=== PATIENT | female | born 1950 | race Caucasian/White ===

== ENCOUNTER 2017-12-05 12:09 | Observation (INO) | payer OTHER ==
[2017-12-05] VITALS (8 sets, daily range): BP systolic 126–188; BP diastolic 59–88; PULSE 49–100; RESP 16–29; TEMP 98.4–98.6; O2SAT 95–97
[~2017-12-05] VITALS: Ht 171.4 cm; Wt 101.8 kg
[~2017-12-05 12:09] MED LIST: D31000CA3; PAXI20TA26 PO; PRAV20TA2 PO
[2017-12-05] MEDS ORDERED: CYAN1TAB24 (12:55)
[2017-12-05] MEDS ORDERED: LOSA25TA PO (12:55)
--- NOTE | 2017-12-05 13:02 | PD ---
HPI Chief Complaint: Cardiac Complaint Time Seen by Provider: 12:49 Travel History International Travel<30 days: No Contact w/Intl Traveler<30days: No Traveled to known affect area: No History of Present Illness HPI This 67-year-old female was sent here by her primary care doctor. She went for a routine visit to Dr. Trujillo's office. Her pulse there was found to be 40. An EKG was done and she was found to be in a pattern of bigeminy. It was recommended to her that she come here. She is not feeling weak or dizzy. She has no history of heart disease. She does have hypertension and is on losartan and also a statin. She has not been having chest pain. She has not been having dyspnea. 20 years ago she had stage IV breast cancer for which she received chemotherapy. There is been no vomiting or diarrhea. She is not on any water pills. She says that she feels as though she is in her usual state of health. She has a history of renal insufficiency and sees Dr. Rg every 6 months. She is currently on losartan [facility] Past Medical History Anxiety: Yes Cancer: Yes (LEFT BREAST) Cardiovascular Problems: Yes (htn on meds) High Cholesterol: Yes Chemotherapy: Yes (1995-last treatment) Diabetes: No Diminished Hearing: No Endocrine: No Gastrointestinal Disorders: No Genitourinary: No Hepatitis: No Hiatal Hernia: No Hypertension: Yes Immune Disorder: No Medical other: Yes (HIGH CHOLESTEROLEMIA; CHEMOTHERAPY- 1995) Musculoskeletal: Yes (HX LUMBAR DISC ISSUES) Neurologic: Yes (NUMBNESS TOES) Psychiatric: Yes (ANXIETY) Reproductive: No Respiratory: No Immunizations Current: Yes Thyroid Disease: No Tetanus Vaccination: Unknown PNEUMOCCOCAL Vaccine (Year): 2 ?: Not Menopausal: Yes : 3 Para: 2 Ectopic : Yes Tubal Ligation: Yes Past Surgical History Abdominal Surgery: Yes ( X 2; LAPAROSCOPY ECTOPIC/OVARY) AICD: No Body Medical Devices: BREA. BREASTS Cardiac Surgery: No Section: Yes Ear Surgery: No Endocrine Surgery: No Eye Surgery: No Genitourinary Surgery: No Gynecologic Surgery: Yes (C SECTION X 2, LAPAROSCOPY (ECTOPIC)) Joint Replacement: No Mastectomy: Yes (LEFT WITH BILAT RECONSTRUCTION-2011) Neurologic Surgery: Yes (LUMBAR DISC. REP.) Oral Surgery: Yes (CAPS) Pacemaker: No Thoracic Surgery: Yes (BREA MASTECTOMY REMOVAL WITH RECONSTRUCTION) Other Surgery: Yes Social History Alcohol Use: No Tobacco Use: No Substance Use: No Allergies-Medications (Allergen,Severity, Reaction): Coded Allergies: No Known Allergies (Unverified Adverse Reaction, Unknown, 12/05/17) Reported Meds & Prescriptions Reported Meds & Active Scripts Active Reported B12 (Cyanocobalamin) 1,000 Mcg Tab Losartan (Losartan Potassium) 25 Mg Tab Unknown Dose PO DAILY Pravastatin 20 Mg Tab 20 Mg PO DAILY Paxil (Paroxetine HCl) 20 Mg Tablet PO HS PRN Vitamin D-3 (Cholecalciferol) 1,000 Unit Cap Review of Systems General / Constitutional: No: Fever, Chills Eyes: No: Diploplia HENT: No: Headaches, Lightheadedness Cardiovascular: No: Chest Pain or Discomfort, Palpitations Respiratory: No: Cough, Shortness of Breath Genitourinary: No: Urgency, Frequency Musculoskeletal: No: Myalgias, Arthralgias Skin: No Itching, No Dryness Neurologic: No: Weakness Endocrine: No: Heat Intolerance, Cold Intolerance Hematologic/Lymphatic: No: Easy Bruising Physical Exam Narrative GENERAL: Well-developed female SKIN: Focused skin assessment warm/dry. HEAD: Atraumatic. Normocephalic. EYES: Pupils equal and round. No scleral icterus. No injection or drainage. ENT: No nasal bleeding or discharge. Mucous membranes pink and moist. NECK: Trachea midline. No JVD. CARDIOVASCULAR: Irregular rate and rhythm. No murmur appreciated. RESPIRATORY: No accessory muscle use. Clear to auscultation. Breath sounds equal bilaterally. GASTROINTESTINAL: Abdomen soft, non-tender, nondistended. Hepatic and splenic margins not palpable. MUSCULOSKELETAL: No obvious deformities. No clubbing. No cyanosis. No edema. NEUROLOGICAL: Awake and alert. No obvious cranial nerve deficits. Motor grossly within normal limits. Normal speech. PSYCHIATRIC: Appropriate mood and affect; insight and judgment normal. Data Data Last Documented VS Vital Signs Date Time Temp Pulse Resp B/P (MAP) Pulse Ox O2 Delivery O2 Flow Rate FiO2 12/05/17 13:58 77 16 160/75 (103) 96 Room Air 12/05/17 12:29 98.6 Orders Orders Electrocardiogram (12/05/17 12:59) Complete Blood Count With Diff (12/05/17 12:59) Basic Metabolic Panel (Bmp) (12/05/17 12:59) Troponin I (12/05/17 12:59) B-Type Natriuretic Peptide (12/05/17 12:59) Magnesium (Mg) (12/05/17 12:59) Thyroid Stimulating Hormone (12/05/17 12:59) Chest, Pa & Lat (12/05/17 12:59) Sodium Chlor 0.9% 250 Ml Inj (Ns 250 Ml (12/05/17 13:45) Labs Laboratory Tests Test 12/05/17 13:00 White Blood Count 9.4 TH/MM3 Red Blood Count 4.67 MIL/MM3 Hemoglobin 13.2 GM/DL Hematocrit 39.9 % Mean Corpuscular Volume 85.4 FL Mean Corpuscular Hemoglobin 28.4 PG Mean Corpuscular Hemoglobin Concent 33.2 % Red Cell Distribution Width 13.0 % Platelet Count 223 TH/MM3 Mean Platelet Volume 9.2 FL Neutrophils (%) (Auto) 72.6 % Lymphocytes (%) (Auto) 16.5 % Monocytes (%) (Auto) 7.3 % Eosinophils (%) (Auto) 2.6 % Basophils (%) (Auto) 1.0 % Neutrophils # (Auto) 6.8 TH/MM3 Lymphocytes # (Auto) 1.6 TH/MM3 Monocytes # (Auto) 0.7 TH/MM3 Eosinophils # (Auto) 0.2 TH/MM3 Basophils # (Auto) 0.1 TH/MM3 CBC Comment DIFF FINAL Differential Comment Blood Urea Nitrogen 37 MG/DL Creatinine 2.40 MG/DL Random Glucose 89 MG/DL Calcium Level 10.1 MG/DL Magnesium Level 2.4 MG/DL Sodium Level 142 MEQ/L Potassium Level 5.1 MEQ/L Chloride Level 110 MEQ/L Carbon Dioxide Level 22.9 MEQ/L Anion Gap 9 MEQ/L Estimat Glomerular Filtration Rate 20 ML/MIN Troponin I LESS THAN 0.02 NG/ML B-Type Natriuretic Peptide 124 PG/ML Thyroid Stimulating Hormone 3rd Gen 0.371 uIU/ML [facility] Medical Decision Making Medical Screen Exam Complete: Yes Emergency Medical Condition: Yes Medical Record Reviewed: Yes Differential Diagnosis Differential includes bigeminy, electrolyte imbalance Narrative Course Potassium is 5.1. Her creatinine is 2.4 which is slightly higher than it was when it was measured 2 years ago. Her hemoglobin is 13. Patient has remained in bigeminy's rate of 40. She is asymptomatic. Patient has remained in bigeminy with a palpable pulse of 40. Discussed the case with Dr. Rodriguez who recommends observing the patient on a alarm security or surveillance monitor to make sure more ominous arrhythmias are not present, and checking echo Diagnosis Primary Impression: Cardiac dysrhythmia Admitting Information Admitting Physician Requests: Observation José Boles MD December 05, 2017 13:02
[2017-12-05 13:16] LABS: AUTOMATED NEUTROPHIL # 6.8 TH/MM3 (1.8-7.7); BASOPHIL # 0.1 TH/MM3 (0-0.2); EOSINOPHIL # 0.2 TH/MM3 (0-0.4); EOSINOPHIL % 2.6 % (0.0-4.0); HEMATOCRIT 39.9 % (35.0-46.0); HEMOGLOBIN 13.2 GM/DL (11.6-15.3); LYMPH % 16.5 % (9.0-44.0); LYMPHOCYTE # 1.6 TH/MM3 (1.0-4.8); MEAN CELL VOLUME 85.4 FL (80.0-100.0); MEAN CORPUSCULAR HEMOGLOBIN 28.4 PG (27.0-34.0); MEAN CORPUSCULAR HGB CONC 33.2 % (32.0-36.0); MEAN PLATELET VOLUME 9.2 FL (7.0-11.0); MONO % 7.3 % (0.0-8.0); MONOCYTE # 0.7 TH/MM3 (0-0.9); NEUT % 72.6 % (16.0-70.0); PLATELET COUNT 223 TH/MM3 (150-450); RED BLOOD COUNT 4.67 MIL/MM3 (4.00-5.30); WHITE BLOOD COUNT 9.4 TH/MM3 (4.0-11.0)
[2017-12-05 13:22] LABS: CHLORIDE 110 MEQ/L (98-107); SODIUM (NA) 142 MEQ/L (136-145)
[2017-12-05 13:26] LABS: CALCIUM 10.1 MG/DL (8.5-10.1)
[2017-12-05 13:27] LABS: BICARBONATE 22.9 MEQ/L (21.0-32.0); BLOOD UREA NITROGEN 37 MG/DL (7-18); GLUCOSE,RANDOM 89 MG/DL (74-106); MAGNESIUM 2.4 MG/DL (1.5-2.5)
[2017-12-05 13:30] LABS: GLOMERULAR FILTRATION RATE 20 ML/MIN (>89)
--- NOTE | 2017-12-05 13:34 | RADRPT ---
EXAM DATE: 12/05/2017 1:31 PM EDT AGE/SEX: 67 years / Female INDICATIONS: Short of breath, Irregular heartbeat. CLINICAL DATA: This is the patient's initial encounter. Patient reports that signs and symptoms have been present for 1 day and indicates a pain score of 0/10. MEDICAL/SURGICAL HISTORY: Hypertension. Carcinoma, breast. . bilateral mastectomy with reconst ruction COMPARISON: No prior [facility] exams available for comparison. FINDINGS: PA and lateral views of the chest demonstrate the lungs to be symmetrically aerated without evidence of mass, infiltrate or effusion. The cardiomediastinal contours are unremarkable. Osseous structures are intact. CONCLUSION: No acute cardiopulmonary disease. Electronically signed by: Acosta Noonan MD 12/05/2017 1:32 PM EDT
[2017-12-05 13:36] LABS: TROPONIN I LESS THAN 0.02 NG/ML (0.02-0.05)
[2017-12-05] MEDS ORDERED: SODIUM CHLOR 0.9% 250 ML INJ 250 ML IV ONE (13:45)
--- NOTE | 2017-12-05 14:43 | HHI.HP ---
HPI Service [facility] Primary Care Physician Carl Trujillo MD Admission Diagnosis CARDIAC DYSRHYTHMIA Diagnoses: (1) Cardiac dysrhythmia Chief Complaint: I went to the doctor and was found to have a low pulse rate and cardiac arrhythmia, therefore was sent to the ED for further exam Travel History International Travel<30 Days: No Contact w/Intl Traveler <30 Da: No Traveled to Known Affected Are: No History of Present Illness 67-year-old female with past medical history of hypertension, who initially went to her PCP this morning and was found to have a pulse of 40, and bigeminy and EKGs that was ordered was referred to the emergency department for further treatment. Patient denies any chest pain, heart palpitation or dizziness however she endorses mild shortness of breath. She has a history of hypertension for which she is on losartan. On admissions, patient had a heart rate of 49 and labile blood pressure. However since being admitted, patient has had improvement of her heart rate. She currently denies any GI bleed. Review of Systems Except as stated in HPI: all other systems reviewed are Neg Past Family Social History Past Medical History Anxiety: Yes Cancer: Yes (LEFT BREAST) Cardiovascular Problems: Yes (htn on meds) High Cholesterol: Yes Chemotherapy: Yes (1995-last treatment) Diabetes: No Diminished Hearing: No Endocrine: No Gastrointestinal Disorders: No Genitourinary: No Hepatitis: No Hiatal Hernia: No Hypertension: Yes Immune Disorder: No Medical other: Yes (HIGH CHOLESTEROLEMIA; CHEMOTHERAPY- 1995) Musculoskeletal: Yes (HX LUMBAR DISC ISSUES) Neurologic: Yes (NUMBNESS TOES) Psychiatric: Yes (ANXIETY) Reproductive: No Respiratory: No PNEUMOCCOCAL Vaccine (Year): 2 ?: Not Past Surgical History Abdominal Surgery: Yes ( X 2; LAPAROSCOPY ECTOPIC/OVARY) Body Medical Devices: BREA. BREASTS Section: Yes Gynecologic Surgery: Yes (C SECTION X 2, LAPAROSCOPY (ECTOPIC)) Mastectomy: Yes (LEFT WITH BILAT RECONSTRUCTION-2011) Neurologic Surgery: Yes (LUMBAR DISC. REP.) Oral Surgery: Yes (CAPS) Thoracic Surgery: Yes (BREA MASTECTOMY REMOVAL WITH RECONSTRUCTION) Other Surgery: Yes Reported Medications B12 (Cyanocobalamin) 1,000 Mcg Tab Losartan (Losartan Potassium) 25 Mg Tab Unknown Dose PO DAILY Pravastatin 20 Mg Tab 20 Mg PO DAILY Paxil (Paroxetine HCl) 20 Mg Tablet PO HS PRN Vitamin D-3 (Cholecalciferol) 1,000 Unit Cap Allergies: Coded Allergies: No Known Allergies (Verified Adverse Reaction, Unknown, 12/05/17) Family History Family history positive for cancer, hypertension Social History Alcohol Use: No Tobacco Use: No Substance Use: No Physical Exam Vital Signs Vital Signs Date Time Temp Pulse Resp B/P (MAP) Pulse Ox O2 Delivery O2 Flow Rate FiO2 12/05/17 13:58 77 16 160/75 (103) 96 Room Air 12/05/17 12:53 83 16 188/82 (117) 97 Room Air 12/05/17 12:50 16 97 Room Air 12/05/17 12:29 98.6 49 16 163/78 (106) 97 Physical Exam GENERAL: This is a well-nourished, well-developed patient, in no apparent distress. SKIN: No rashes, ecchymoses or lesions. Cool and dry. HEAD: Atraumatic. Normocephalic. No temporal or scalp tenderness. EYES: Pupils equal round and reactive. Extraocular motions intact. No scleral icterus. No injection or drainage. ENT: Nose without bleeding, purulent drainage or septal hematoma. Throat without erythema, tonsillar hypertrophy or exudate. Uvula midline. Airway patent. NECK: Trachea midline. No JVD or lymphadenopathy. Supple, nontender, no meningeal signs. CARDIOVASCULAR: Regular rate and rhythm without murmurs, gallops, or rubs. RESPIRATORY: Clear to auscultation. Breath sounds equal bilaterally. No wheezes , rales, or rhonchi. GASTROINTESTINAL: Abdomen soft, non-tender, nondistended. No hepato-splenomegaly , or palpable masses. No guarding. MUSCULOSKELETAL: Extremities without clubbing, cyanosis, or edema. No joint tenderness, effusion, or edema noted. No calf tenderness. Negative Homans sign bilaterally. NEUROLOGICAL: Awake and alert. Cranial nerves II through XII intact. Motor and sensory grossly within normal limits. Five out of 5 muscle strength in all muscle groups. Normal speech. Laboratory Laboratory Tests Test 12/05/17 13:00 White Blood Count 9.4 Red Blood Count 4.67 Hemoglobin 13.2 Hematocrit 39.9 Mean Corpuscular Volume 85.4 Mean Corpuscular Hemoglobin 28.4 Mean Corpuscular Hemoglobin Concent 33.2 Red Cell Distribution Width 13.0 Platelet Count 223 Mean Platelet Volume 9.2 Neutrophils (%) (Auto) 72.6 Lymphocytes (%) (Auto) 16.5 Monocytes (%) (Auto) 7.3 Eosinophils (%) (Auto) 2.6 Basophils (%) (Auto) 1.0 Neutrophils # (Auto) 6.8 Lymphocytes # (Auto) 1.6 Monocytes # (Auto) 0.7 Eosinophils # (Auto) 0.2 Basophils # (Auto) 0.1 CBC Comment DIFF FINAL Differential Comment Blood Urea Nitrogen 37 Creatinine 2.40 Random Glucose 89 Calcium Level 10.1 Magnesium Level 2.4 Sodium Level 142 Potassium Level 5.1 Chloride Level 110 Carbon Dioxide Level 22.9 Anion Gap 9 Estimat Glomerular Filtration Rate 20 Troponin I LESS THAN 0.02 B-Type Natriuretic Peptide 124 Thyroid Stimulating Hormone 3rd Gen 0.371 Result Diagram: 12/05/17 1300 12/05/17 1300 Imaging Last Impressions Chest X-Ray 12/05/17 1259 Signed Impressions: CONCLUSION: No acute cardiopulmonary disease. Septic Shock Reassessment Septic shock perfusion: reassessment completed Caprini VTE Risk Assessment Caprini VTE Risk Assessment: Mod/High Risk (score >= 2) Caprini Risk Assessment Model Point Value = 1 Point Value = 2 Point Value = 3 Point Value = 5 Age 41-60 Minor surgery BMI > 25 kg/m2 Swollen legs Varicose veins or History of unexplained or recurrent spontaneous Oral contraceptives or hormone replacement Sepsis (< 1 month) Serious lung disease, including pneumonia (< 1 month) Abnormal pulmonary function Acute myocardial infarction Congestive heart failure (< 1 month) History of inflammatory bowel disease Medical patient at bed rest Age 61-74 Arthroscopic surgery Major open surgery (> 45 min) Laparoscopic surgery (> 45 min) Malignancy Confined to bed (> 72 hours) Immobilizing plaster cast Central venous access Age >= 75 History of VTE Family history of VTE Factor V Leiden Prothrombin [id number] Lupus anticoagulant Anticardiolipin antibodies Elevated serum homocysteine Heparin-induced thrombocytopenia Other congenital or acquired thrombophilia Stroke (< 1 month) Elective arthroplasty Hip, pelvis, or leg fracture Acute spinal cord injury (< 1 month) Prophylaxis Regimen Total Risk Factor Score Risk Level Prophylaxis Regimen 0-1 Low Early ambulation 2 Moderate Order ONE of the following: *Sequential Compression Device (SCD) *Heparin 5000 units SQ BID 3-4 Higher Order ONE of the following medications: *Heparin 5000 units SQ TID *Enoxaparin/Lovenox 40 mg SQ daily (WT < 150 kg, CrCl > 30 mL/min) *Enoxaparin/Lovenox 30 mg SQ daily (WT < 150 kg, CrCl > 10-29 mL/min) *Enoxaparin/Lovenox 30 mg SQ BID (WT < 150 kg, CrCl > 30 mL/min) AND/OR *Sequential Compression Device (SCD) 5 or more Highest Order ONE of the following medications: *Heparin 5000 units SQ TID (Preferred with Epidurals) *Enoxaparin/Lovenox 40 mg SQ daily (WT < 150 kg, CrCl > 30 mL/min) *Enoxaparin/Lovenox 30 mg SQ daily (WT < 150 kg, CrCl > 10-29 mL/min) *Enoxaparin/Lovenox 30 mg SQ BID (WT < 150 kg, CrCl > 30 mL/min) AND *Sequential Compression Device (SCD) Assessment and Plan Problem List: (1) Cardiac dysrhythmia ICD Code: I49.9 - Cardiac arrhythmia, unspecified Status: Acute Assessment and Plan 67-year-old female with Cardiac dysrhythmia Bigeminy The ED physician discussed the case with cardiology on-call who recommended 23-hour observations and 2D echo monitoring as well as correcting all electrolytes abnormalities. Initial cardiac enzyme negative Continue with telemetry monitoring Cardiology consultation as needed Asymptomatic bradycardia on presentation However this is resolved since admission 2D echo pending Acute kidney injury Hold on nephrotoxic drug Start gentle IV fluid hydration and monitor BUN and creatinine Hypertension Hydralazine as needed Hyperlipidemia Resume statin DVT prophylaxis: Bilateral SCDs Code Status Full code Discussed Condition With Patient, ED physician Kannan Ontiveros MD December 05, 2017 14:43
[2017-12-05] MEDS ORDERED: METOCLOPRAMIDE HCL 10 MG/2 ML VIAL IV PUSH PRN (14:45)
[2017-12-05] MEDS ORDERED: MAGNESIUM HYDROXIDE SUSP 30 ML CUP PO PRN (14:45)
[2017-12-05] MEDS ORDERED: SODIUM CHLORIDE 0.9% FLUSH 10 ML FLUSH IV FLUSH PRN (14:45)
[2017-12-05] MEDS ORDERED: ACETAMINOPHEN 325 MG TAB PO PRN ×2 (14:45)
[2017-12-05] MEDS ORDERED: NALOXONE HCL 0.4 MG/ML AMP IV PUSH PRN (14:45)
[2017-12-05] MEDS: SODIUM CHLOR 0.9% 1000 ML INJ 1,000 ML IV SCH (15:26)
[2017-12-05] MEDS ORDERED: SIMETHICONE 80 MG CHEWABLE TAB CHEW PRN (16:00)
[2017-12-05] MEDS: SODIUM CHLORIDE 0.9% FLUSH 10 ML FLUSH IV FLUSH SCH (21:00)
[2017-12-05] MEDS ORDERED: hydrALAZINE HCL 50 MG TAB PO SCH (21:00)
[2017-12-05] MEDS: hydrALAZINE HCL 25 MG TAB PO PRN (22:10)
[2017-12-06] VITALS: BP 152/72; PULSE 84; RESP 22; TEMP 98.6; O2SAT 96
[2017-12-06 04:00] VITALS: BP 161/79; PULSE 72; RESP 20; TEMP 97.5; O2SAT 96
[2017-12-06 04:52] LABS: AUTOMATED NEUTROPHIL # 5.2 TH/MM3 (1.8-7.7); BASOPHIL # 0.1 TH/MM3 (0-0.2); BASOPHIL % 0.9 % (0.0-2.0); EOSINOPHIL # 0.2 TH/MM3 (0-0.4); EOSINOPHIL % 2.8 % (0.0-4.0); HEMATOCRIT 38.4 % (35.0-46.0); HEMOGLOBIN 12.8 GM/DL (11.6-15.3); LYMPH % 24.7 % (9.0-44.0); LYMPHOCYTE # 2.1 TH/MM3 (1.0-4.8); MEAN CELL VOLUME 86.3 FL (80.0-100.0); MEAN CORPUSCULAR HEMOGLOBIN 28.7 PG (27.0-34.0); MEAN CORPUSCULAR HGB CONC 33.2 % (32.0-36.0); MEAN PLATELET VOLUME 9.6 FL (7.0-11.0); MONO % 9.2 % (0.0-8.0); MONOCYTE # 0.8 TH/MM3 (0-0.9); NEUT % 62.4 % (16.0-70.0); PLATELET COUNT 205 TH/MM3 (150-450); RED BLOOD COUNT 4.45 MIL/MM3 (4.00-5.30); RED CELL DISTRIBUTION WIDTH 13.3 % (11.6-17.2); WHITE BLOOD COUNT 8.4 TH/MM3 (4.0-11.0)
[2017-12-06 05:38] LABS: ALBUMIN 3.4 GM/DL (3.4-5.0); ALKALINE PHOSPHATASE 68 U/L (45-117); ALT (GPT) 20 U/L (10-53); AST (GOT) 9 U/L (15-37); BICARBONATE 21.4 MEQ/L (21.0-32.0); BLOOD UREA NITROGEN 38 MG/DL (7-18); CALCIUM 8.8 MG/DL (8.5-10.1); CHLORIDE 112 MEQ/L (98-107); GLOMERULAR FILTRATION RATE 21 ML/MIN (>89); GLUCOSE,RANDOM 89 MG/DL (74-106); SODIUM (NA) 143 MEQ/L (136-145); TOTAL BILIRUBIN ADULT 0.3 MG/DL (0.2-1.0); TOTAL PROTEIN 6.9 GM/DL (6.4-8.2)
[2017-12-06] MEDS: SODIUM CHLOR 0.9% 1000 ML INJ 1,000 ML IV SCH (05:57)
[2017-12-06] MEDS: hydrALAZINE HCL 25 MG TAB PO PRN (06:10)
[2017-12-06] MEDS: SODIUM CHLORIDE 0.9% FLUSH 10 ML FLUSH IV FLUSH SCH (07:49)
[2017-12-06 08:00] VITALS: PULSE 78
[2017-12-06 08:12] VITALS: BP 154/77; PULSE 74; RESP 25; TEMP 97.9
[2017-12-06] MEDS ORDERED: LOSARTAN 25 MG TAB PO SCH (09:00)
[2017-12-06] MEDS ORDERED: PRAVASTATIN SOD 20 MG TAB PO SCH (09:00)
[2017-12-06] MEDS ORDERED: PARoxetine HCL 20 MG TAB PO PRN (09:20)
[2017-12-06 10:00] VITALS: PULSE 90
--- NOTE | 2017-12-06 10:56 | HHI.PR ---
Subjective Remarks Follow-up cardiac arrhythmia December 06, 2017-patient seen and examined, she was very upset that she did not get her medicine as prescribed prior to coming to the hospital. Denies any chest pain or shortness of breath. Objective Vitals Vital Signs Date Time Temp Pulse Resp B/P (MAP) Pulse Ox O2 Delivery O2 Flow Rate FiO2 12/06/17 10:00 90 12/06/17 08:12 74 25 154/77 (102) 12/06/17 08:12 97.9 74 25 154/77 (102) 12/06/17 08:00 78 12/06/17 04:00 97.5 72 20 161/79 (106) 96 12/06/17 04:00 72 12/06/17 00:00 98.6 84 22 152/72 (98) 96 12/05/17 20:00 98.5 82 24 163/85 (111) 97 12/05/17 20:00 77 12/05/17 16:39 100 29 126/72 (90) 12/05/17 16:36 98.4 98 20 175/59 (97) 12/05/17 16:00 76 18 12/05/17 14:45 74 16 97 12/05/17 14:00 72 16 166/88 (114) 95 12/05/17 13:58 77 16 160/75 (103) 96 Room Air 12/05/17 12:53 83 16 188/82 (117) 97 Room Air 12/05/17 12:50 16 97 Room Air 12/05/17 12:29 98.6 49 16 163/78 (106) 97 I/O 12/05/17 12/05/17 12/05/17 12/06/17 12/06/17 12/06/17 07:00 15:00 23:00 07:00 15:00 23:00 Intake Total 250 ml 1480 ml Balance 250 ml 1480 ml Intake Oral 480 ml IV Total 250 ml 1000 ml # Voids 1 3 # Bowel Movements 1 0 Result Diagram: 12/06/17 0425 12/06/17 0425 Imaging Last Impressions Chest X-Ray 12/05/17 1259 Signed Impressions: CONCLUSION: No acute cardiopulmonary disease. Objective Remarks GENERAL: NAD SKIN: Warm and dry. HEAD: Normocephalic. EYES: No scleral icterus. No injection or drainage. NECK: Supple, trachea midline. No JVD or lymphadenopathy. CARDIOVASCULAR: Regular rate and rhythm without murmurs, gallops, or rubs. RESPIRATORY: Breath sounds equal bilaterally. No accessory muscle use. GASTROINTESTINAL: Abdomen soft, non-tender, nondistended. MUSCULOSKELETAL: No cyanosis, or edema. BACK: Nontender without obvious deformity. No CVA tenderness. A/P Problem List: (1) Cardiac dysrhythmia ICD Code: I49.9 - Cardiac arrhythmia, unspecified Status: Acute Assessment and Plan 67-year-old female with Cardiac dysrhythmia Bigeminy The ED physician discussed the case with cardiology on-call who recommended 23-hour observations and 2D echo monitoring as well as correcting all electrolytes abnormalities. Initial cardiac enzyme negative Continue with telemetry monitoring Cardiology consultation as needed 2D echo with EF of 60-65% with normal ventricular function Asymptomatic bradycardia on presentation However this is resolved since admission 2D echo with EF of 60-65% with normal ventricular function Acute kidney injury Hold on nephrotoxic drug Improve with gentle IV fluid hydration and monitor BUN and creatinine Hypertension Hydralazine as needed Losartan resumed this AM Hyperlipidemia Continue statin DVT prophylaxis: Bilateral SCDs Discharge Planning Discharge patient to home Condition on discharge: Improved Regular Diet as tolerated Ad Susan activity Rx written: None Follow-up with primary care physician in 1 to Kannan Ontiveros MD Dec 06, 2017 10:56
--- NOTE | 2017-12-06 12:04 | ECHRPT ---
Indication: SHORTNESS OF BREATH CONCLUSIONS The left ventricular systolic function is normal with an estimated ejection fraction in the range of 60-65%. Normal left ventricular size. Mild concentric left ventricular hypertrophy. No atrial level shunt is demonstrated by color flow Doppler interrogation. The aortic root and proximal ascending aorta are not well visualized. Aortic valve sclerosis is present. There is trace tricuspid valve regurgitation. The estimated pulmonary arterial pressure is 30.1 mmHg. BP: 161 / 79 HR: 72 Rhythm: Sinus, PVCs MEASUREMENTS (Male / Female) Normal Values Technical Quality:Fair 2D ECHO LV Diastolic Diameter PLAX 4.5 cm 4.2 - 5.9 / 3.9 - 5.3 cm LV Systolic Diameter PLAX 3.2 cm IVS Diastolic Thickness 1.4 cm 0.6 - 1.0 / 0.6 - 0.9 cm LVPW Diastolic Thickness 1.4 cm 0.6 - 1.0 / 0.6 - 0.9 cm LV Relative Wall Thickness 0.6 LVOT Diameter 2.1 cm Aortic Root Diameter 2.9 cm LA Systolic Diameter LX 3.7 cm 3.0 - 4.0 / 2.7 - 3.8 cm M-MODE AV Cusp Separation MM 1.5 cm DOPPLER AV Peak Velocity 161.0 cm/s AV Peak Gradient 10.4 mmHg AV Mean Gradient 5.0 mmHg AV Velocity Time Integral 29.4 cm LVOT Peak Velocity 81.2 cm/s LVOT Peak Gradient 2.6 mmHg LVOT Velocity Time Integral 18.2 cm AV Area Cont Eq vti 2.1 cm AV Area Cont Eq pk 1.7 cm Mitral E Point Velocity 93.8 cm/s Mitral A Point Velocity 86.9 cm/s Mitral E to A Ratio 1.1 LV E' Lateral Velocity 13.5 cm/s Mitral E to LV E' Lateral Ratio 6.9 LV E' Septal Velocity 12.8 cm/s Mitral E to LV E' Septal Ratio 7.3 TR Peak Velocity 224.0 cm/s TR Peak Gradient 20.1 mmHg Right Atrial Pressure 10.0 mmHg Pulmonary Artery Systolic Pressu 30.1 mmHg Right Ventricular Systolic Press 30.1 mmHg PV Peak Velocity 70.7 cm/s PV Peak Gradient 2.0 mmHg FINDINGS LEFT VENTRICLE Normal left ventricular size. Mild concentric left ventricular hypertrophy. The left ventricular systolic function is normal with an estimated ejection fraction in the range of 60-65%. RIGHT VENTRICLE Normal right ventricular size and systolic function. LEFT ATRIUM The left atrial size is normal. RIGHT ATRIUM The right atrial size is normal. ATRIAL SEPTUM No atrial level shunt is demonstrated by color flow Doppler interrogation. AORTA The aortic root and proximal ascending aorta are not well visualized. MITRAL VALVE Structurally normal mitral valve. No mitral valve stenosis or regurgitation. AORTIC VALVE Aortic valve sclerosis is present. TRICUSPID VALVE There is trace tricuspid valve regurgitation. The estimated pulmonary arterial pressure is 30.1 mmHg. PULMONARY VALVE No pulmonary valve regurgitation or stenosis. VESSELS The inferior vena cava is normal in size. PERICARDIUM No pericardial effusion. Juan Daniel Uribe MD, FACC (Electronically Signed) Final Date:06 December 2017 12:03
--- NOTE | 2017-12-06 15:22 | EKG ---
Date Performed: 12/05/2017 Time Performed: 12:40:27 PTAGE: 67 years EKG: Sinus rhythm WITH FREQUENT VENTRICULAR PREMATURE COMPLEXES IN A BIGEMINAL PATTERN ABNORMAL RHYTHM ECG Compared to PREVIOUS TRACING , PVCs are now in a bigeminal pattern. PREVIOUS TRACIN01/11/2013 14.4 5 DOCTOR: Erwin Lopez Interpretating Date/Time 12/06/2017 15:20:37
== END 2017-12-06 11:00 | disposition home or self-care (01) ==
LOC: PHED 12:09 → PHEDA 14:21 → PHICU 15:00
PROVIDERS: ADMIT Hospitalist; ATTEND Hospitalist
DX: I49.9 Cardiac arrhythmia, unspecified (principal); R00.1 Bradycardia, unspecified; N17.9 Acute kidney failure, unspecified; I10 Essential (primary) hypertension; E78.5 Hyperlipidemia, unspecified; R06.02 Shortness of breath; F41.9 Anxiety disorder, unspecified; Z79.899 Other long term (current) drug therapy; Z85.3 Personal history of malignant neoplasm of breast; Z92.21 Personal history of antineoplastic chemotherapy
CPT/HCPCS: 71046; 80048; 80053; 83735; 83880; 84443; 84484; 85025; 93005; 93306; 96360; 96361; 99285; G0378; J7030; J7050